=== PATIENT | female | born 1935 ===

== ENCOUNTER → 2024-09-07 07:46 | Outpatient (REF) | payer OTHER, SELFPAY ==
--- NOTE | 2024-08-09 12:43 | TAVREVAL ---
TAVR Evaluation
CAT Scan
CAT Scan Date: 08/25/24
Labs
Labs:
07/05/2024:
H/H: 13.5/40.9
WBC: 5.1
Platelets: [id number]
BUN/Creat:28/0.98
GFR: 56
Physician Visits
Date of Visit Interventionalist:Rocio/Mary/Aguila/Chiki: 08/06/24 (David Ayers)
Primary Financial Analyst Name: Justin Peck
Date of Visit Primary Financial Analyst: 06/18/24
PCP Name: Justin Hall
Review of Systems
Review of Systems: Positive for Dyspnea
Plan
Plan:
08/06/2024: Patient seen by Dr. 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 Patient with progressive ARREDONDO. Patient had cardiac cath by Dr. Sanders at [facility]. Call and requested the images be sent to CT surgery office.
08/09/2024: Called and spoke to patient's daughter, Pam. She has already scheduled her mother's echo and CT TAVR for 08/25. Gave appointment to consult with Dr. Stephenson on 09/01. Obtained labs from [facility] [address] and faxed them to CT scan department. Provided with
contact information as well as emailed to her. Allowed for and answered questions. Emailed daughter all instructions and need for dental clearance.
== END ==
LOC: RCS 07:46
PROVIDERS: ATTENDING PHYSICIAN Student in an Organized Health Care Education/Training Program; FAMILY PHYSICIAN Internal Medicine
DX: I35.0 Nonrheumatic aortic (valve) stenosis (principal)
CPT/HCPCS: 74174; 75572; 93306; Q9967